=== PATIENT | male | born 1980 | race Caucasian/White ===

== ENCOUNTER 2019-04-13 10:12 | Inpatient (IN) | payer OTHER ==
[2019-04-13 12:55] VITALS: BMI 25.4
--- NOTE | 2019-04-13 14:57 | HP ---
CIWA Score Nausea/Vomitin Muscle Tremors: 2 Anxiety: 1-Mildly Anxious Agitation: 1-Slight > Activity Paroxysmal Sweats: 2 Orientation: 0-Oriented Tacttile Disturbances: 2-Mild Itch/Numbness/Burn Auditory Disturbances: 0-None Visual Disturbances: 2-Mild Sensitivity Headache: 3-Moderate CIWA-Ar Total Score: 15 - Admission Criteria OASAS Guidelines: Admission for Medically Managed Detox: Requires at least one of the followin. CIWA greater than 12 2. Seizures within the past 24 hours 3. Delirium tremens within the past 24 hours 4. Hallucinations within the past 24 hours 5. Acute intervention needed for co occurring medical disorder 6. Acute intervention needed for co occurring psychiatric disorder 7. Severe withdrawal that cannot be handled at a lower level of care (continued vomiting, continued diarrhea, abnormal vital signs) requiring intravenous medication and/or fluids 8. Patient presents the following: CIWA greater than 12 Admission Criteria Met: Admission criteria met Admission ROS S - HPI Chief Complaint: I need detox Allergies/Adverse Reactions: Allergies Allergy/AdvReac Type Severity Reaction Status Date / Time No Known Allergies Allergy Verified 04/13/19 12:44 History of Present Illness: 38 year old man with alcohol dependence presents for detox. Patient is on methadone maintenance at [facility], current dose is 90mg, last medicated yesterday, 04/12. Patient reports a fall this morning in which he sustained a bruise to the left olvera. He denies alcohol related blackouts or seizures. Exam Limitations: No Limitations - Ebola screening Have you traveled outside of the country in the last 21 days: No (N) Have you had contact with anyone from an Ebola affected area: No Have you been sick,other than usual withdrawal symptoms: No Do you have a fever: No - Review of Systems Constitutional: Changes in sleep, Unintentional Wgt. Loss EENT: reports: No Symptoms Reported Respiratory: reports: SOB with Exertion Cardiac: reports: No Symptoms Reported GI: reports: Poor Appetite, Abdominal cramping : reports: No Symptoms Reported Musculoskeletal: reports: Muscle Pain, Muscle Weakness Integumentary: reports: Sweating Neuro: reports: Headache, Numbness, Tremors Endocrine: reports: No Symptoms Reported Hematology: reports: No Symptoms Reported Psychiatric: reports: No Sypmtoms Reported Other Systems: Reviewed and Negative Patient History - Patient Medical History Hx Anemia: No Hx Asthma: No Hx Chronic Obstructive Pulmonary Disease (COPD): No Hx Cancer: No Hx Cardiac Disorders: No Hx Congestive Heart Failure: No Hx Hypertension: No Hx Hypercholesterolemia: No Hx Pacemaker: No HX Cerebrovascular Accident: No Hx Seizures: No Hx Dementia: No Hx Diabetes: No Hx Gastrointestinal Disorders: No Hx Liver Disease: No Hx Genitourinary Disorders: No Hx Sexually Transmitted Disorders: No Hx Renal Disease (ESRD): No Hx Thyroid Disease: No Hx Human Immunodeficiency Virus (HIV): No Hx Hepatitis C: No Hx Depression: No Hx Suicide Attempt: No Hx Bipolar Disorder: No Hx Schizophrenia: No - Patient Surgical History Past Surgical History: No Hx Neurologic Surgery: No Hx Cataract Extraction: No Hx Cardiac Surgery: No Hx Lung Surgery: No Hx Breast Surgery: No Hx Breast Biopsy: No Hx Abdominal Surgery: No Hx Appendectomy: No Hx Cholecystectomy: Yes Hx Genitourinary Surgery: No Hx Section: No Hx Orthopedic Surgery: No Hx Hysterectomy: No Anesthesia Reaction: No - PPD History Previous Implant?: Yes Documented Results: Negative w/o proof Implanted On Prior R Admission?: No PPD to be Administered?: No - Smoking Cessation Smoking history: Current every day smoker Have you smoked in the past 12 months: Yes Aproximately how many cigarettes per day: 20 Hx Chewing Tobacco Use: No Initiated information on smoking cessation: Yes 'Breaking Loose' booklet given: 04/13/19 - Substances abused Alcohol Frequency: Daily Amount used: 2 liters cognac/day Age of first use: 19 Date of last use: 04/13/19 Heroin Substance route: Inhalation Amount used: 4-5 bags/day Age of first use: 32 Date of last use: 04/12/19 Cocaine Substance route: Smoking Frequency: Daily Amount used: $100/day Age of first use: 19 Date of last use: 04/13/19 Family Disease History - Family Disease History Family Disease History: Diabetes: Father (colon), Mother, CA: Father Admission Physical Exam BHS - Vital Signs Vital Signs: Vital Signs - 24 hr 04/13/19 12:48 Temperature 98.1 F Pulse Rate 70 Respiratory 18 Rate Blood Pressure 126/92 - Physical General Appearance: Yes: No Apparent Distress, Nourished HEENTM: Yes: EOMI, Hearing grossly Normal, Normal ENT Inspection, Normocephalic , Normal Voice, RUFINO Respiratory: Yes: Chest Non-Tender, Lungs Clear, Normal Breath Sounds, No Respiratory Distress, No Accessory Muscle Use Neck: Yes: No masses,lesions,Nodules, Supple Breast: Yes: Breast Exam Deferred Cardiology: Yes: Regular Rhythm, Regular Rate, S1, S2 Abdominal: Yes: Normal Bowel Sounds, Non Tender, Soft Genitourinary: Yes: Within Normal Limits Back: Yes: Normal Inspection Extremities: Yes: Normal Range of Motion, Non-Tender, Tremors Neurological: Yes: pvc loader II-XII NML intact, Fully Oriented, Alert, Motor Strength 5/5, Normal Mood/Affect, Normal Response Integumentary: Yes: Normal Color, Clammy Lymphatic: Yes: Within Normal Limits - Diagnostic (1) Alcohol dependence with uncomplicated withdrawal Current Visit: Yes Status: Acute (2) Nicotine dependence Current Visit: Yes Status: Acute Qualifiers: Nicotine product type: cigarettes Substance use status: uncomplicated Qualified Code(s): F17.210 - Nicotine dependence, cigarettes, uncomplicated (3) Methadone maintenance therapy patient Current Visit: Yes Status: Chronic (4) Cocaine abuse Current Visit: Yes Status: Chronic Cleared for Admission [facility] - Detox or Rehab [facility] Level of Care: Medically Managed Detox Regimen/Protocol: Librium Claeared for Rehab Admission: No Breathalyzer - Breathalyzer Breathalyzer: 0 Urine Drug Screen - Test Device Lot number: [id number] Expiration date: 01/29/21 - Control Is test valid?: Yes - Results Drug screen NEGATIVE: No Urine drug screen results: THC-Marijuana, RACIEL-Cocaine, MOP-Opiates, MTD- Methadone Inpatient Rehab Admission - Rehab Decision to Admit Inpatient rehab admission?: No
[2019-04-13] MEDS ORDERED: MAGNESIUM HYDROX 2400MG/30ML ORAL SUSPENSION 30 ML CUP PO PRN (15:05)
[2019-04-13] MEDS ORDERED: BISMUTH SUBSALICYLATE 524 MG/30 ML UD PO PRN (15:05)
[2019-04-13] MEDS ORDERED: MAGNESIUM CITRATE 300 ML BOTTLE PO PRN (15:05)
[2019-04-13] MEDS ORDERED: IBUPROFEN 400 MG TABLET (FP) PO PRN (15:05)
[2019-04-13] MEDS ORDERED: MENTHOL/PHENOL 1 EACH UD MM PRN (15:05)
[2019-04-13] MEDS ORDERED: chlordiazePOXIDE HCL 25 MG CAPSULE PO PRN (15:05)
[2019-04-13] MEDS ORDERED: MAG HYDROX/AL HYDROX/SIMETH 30 ML UNIT-DOSE CUP PO PRN (15:05)
[2019-04-13] MEDS ORDERED: ACETAMINOPHEN 325 MG TABLET (FP) PO PRN ×2 (15:05)
[2019-04-13] MEDS ORDERED: METHADONE HCL 10 MG TABLET PO SCH (15:30)
[2019-04-13] MEDS: chlordiazePOXIDE HCL 25 MG CAPSULE PO SCH ×2 (18:28→22:42)
[2019-04-13] MEDS: NICOTINE 14 MG/24 HOURS TOPICAL PATCH TD SCH (18:31)
[2019-04-13] MEDS: NICOTINE POLACRILEX 2 MG GUM BUC PRN ×2 (18:35→22:45)
[2019-04-13] MEDS: BACITRACIN 15 GM TUBE TOPICAL OINTMENT TP SCH (22:42)
[2019-04-13] MEDS: THIAMINE HCL 100 MG TABLET (FP) PO SCH (22:42)
[2019-04-13] MEDS: MELATONIN 5 MG TABLETS PO PRN (22:42)
[2019-04-14] MEDS ORDERED: METHADONE HCL 10 MG TABLET ONE (04:30)
[2019-04-14] MEDS ORDERED: METHADONE HCL 40 MG DISPERSABLE TABLET ONE (04:30)
[2019-04-14] MEDS: METHADONE 80 MG, METHADONE 10 MG PO SCH (05:20)
[2019-04-14] MEDS: chlordiazePOXIDE HCL 25 MG CAPSULE PO SCH ×4 (05:21→22:40)
[2019-04-14] MEDS ORDERED: ALBUTEROL SO4 8 GM HFA INHALER IH ONE (05:41)
[2019-04-14] MEDS ORDERED: ALBUTEROL SO4 2.5/IPRATROPIUM 0.5 INH SOL 3 ML VIAL.NEB. NEB ONE ×2 (05:52→16:26)
[2019-04-14] MEDS ORDERED: ALBUTEROL SO4 2.5/IPRATROPIUM 0.5 INH SOL 3 ML VIAL.NEB. NEB PRN (06:07)
--- NOTE | 2019-04-14 08:53 | EKG ---
Test Reason : Blood Pressure : / mmHG Vent. Rate : 051 BPM Atrial Rate : 051 BPM P-R Int : 140 ms QRS Dur : 088 ms QT Int : 444 ms P-R-T Axes : 047 035 041 degrees QTc Int : [address] ELEVATION, CONSIDER EARLY REPOLARIZATION BORDERLINE ECG NO PREVIOUS ECGS AVAILABLE Confirmed by GISELL MEREDITH, CHER ([id number]) on 04/14/2019 8:53:18 AM Referred By: CHEYENNE MARSHALL Confirmed By:CHER JAMESON MD
[2019-04-14 10:23] LABS: ALBUMIN 3.3 g/dl (3.4-5.0); BILIRUBIN,TOTAL 0.2 mg/dL (0.2-1); BLOOD UREA NITROGEN 17.3 mg/dL (7-18); CALCIUM 8.5 mg/dL (8.5-10.1); CREATININE 0.7 mg/dL (0.55-1.3); POTASSIUM 3.9 mmol/L (3.5-5.1); TOT PROT 6.3 g/dl (6.4-8.2)
[2019-04-14 10:33] LABS: HEMATOCRIT 41.8 % (35.4-49); HEMOGLOBIN 13.8 GM/dL (11.7-16.9); MCH 29.9 pg (25.7-33.7); MCHC 33.1 g/dl (32.0-35.9); MEAN CELL VOLUME 90.3 fl (80-96); MEAN PLT VOLUME 10.8 fl (7.5-11.1); RBC 4.63 M/mm3 (4.00-5.60); RDW 13.6 % (11.9-15.9); WHITE BLOOD COUNT 9.6 K/mm3 (4.0-10.0)
[2019-04-14 10:52] LABS: PLATELET COUNT 188 K/MM3 (134-434)
[2019-04-14] MEDS: NICOTINE 14 MG/24 HOURS TOPICAL PATCH TD SCH (11:26)
[2019-04-14] MEDS: PRENATAL VITAMINS W/ FOLIC ACID TABLET (FP) PO SCH (11:26)
[2019-04-14] MEDS: BACITRACIN 15 GM TUBE TOPICAL OINTMENT TP SCH ×2 (11:26→23:10)
[2019-04-14] MEDS: METHOCARBAMOL 500 MG TABLET PO PRN ×2 (15:36→22:40)
--- NOTE | 2019-04-14 17:09 | PN ---
[facility] CIWA - CIWA Score Nausea/Vomitin-Mild Nausea/No Vomiting Muscle Tremors: 3 Anxiety: 3 Agitation: 3 Paroxysmal Sweats: 3 Orientation: 0-Oriented Tacttile Disturbances: 0-None Auditory Disturbances: 0-None Visual Disturbances: 0-None Headache: 1-Very Mild CIWA-Ar Total Score: 14 [facility] Progress Note (SOAP) Subjective: Headache, other symptoms controlled with medication (refused to elaborate) Objective: 04/14/19 17:07 Last Vital Signs Temp Pulse Resp BP Pulse Ox 97.5 F L 83 18 112/63 04/14/19 17:06 04/14/19 17:06 04/14/19 17:06 04/14/19 17:06 Laboratory Tests 04/14/19 04/14/19 04/14/19 07:50 07:50 07:50 WBC 9.6 RBC 4.63 Hgb 13.8 Hct 41.8 MCV 90.3 MCH 29.9 MCHC 33.1 RDW 13.6 Plt Count 188 MPV 10.8 Sodium 143 Potassium 3.9 Chloride 105 Carbon Dioxide 32 Anion Gap 6 L BUN 17.3 Creatinine 0.7 Est GFR (CKD-EPI)AfAm 139.73 Est GFR (CKD-EPI)NonAf 120.56 Random Glucose 99 Calcium 8.5 Total Bilirubin 0.2 AST 14 L ALT 30 Alkaline Phosphatase 116 Total Protein 6.3 L Albumin 3.3 L RPR Titer Nonreactive Labs reviewed Assessment: 04/14/19 17:08 Withdrawal symptoms Plan: Continue detox Encouraged PO water intake
[2019-04-14] MEDS: NICOTINE POLACRILEX 2 MG GUM BUC PRN ×3 (17:56→22:43)
[2019-04-14] MEDS: THIAMINE HCL 100 MG TABLET (FP) PO SCH (22:40)
[2019-04-14] MEDS: MELATONIN 5 MG TABLETS PO PRN (22:40)
[2019-04-15] MEDS ORDERED: METHADONE HCL 40 MG DISPERSABLE TABLET ONE (04:11)
[2019-04-15] MEDS ORDERED: METHADONE HCL 10 MG TABLET ONE (04:11)
[2019-04-15] MEDS: METHADONE 80 MG, METHADONE 10 MG PO SCH (05:21)
[2019-04-15] MEDS: chlordiazePOXIDE HCL 25 MG CAPSULE PO SCH ×4 (05:21→22:36)
[2019-04-15] MEDS: ALBUTEROL SO4 8 GM HFA INHALER IH PRN ×2 (07:53→13:37)
[2019-04-15] MEDS: NICOTINE 14 MG/24 HOURS TOPICAL PATCH TD SCH (10:32)
[2019-04-15] MEDS: BACITRACIN 15 GM TUBE TOPICAL OINTMENT TP SCH ×2 (10:32→22:49)
[2019-04-15] MEDS: NICOTINE POLACRILEX 2 MG GUM BUC PRN ×5 (10:32→22:38)
[2019-04-15] MEDS: PRENATAL VITAMINS W/ FOLIC ACID TABLET (FP) PO SCH (10:32)
--- NOTE | 2019-04-15 12:28 | PN ---
[facility] CIWA - CIWA Score Nausea/Vomitin-No Nausea/No Vomiting Muscle Tremors: 3 Anxiety: 2 Agitation: 2 Paroxysmal Sweats: 2 Orientation: 0-Oriented Tacttile Disturbances: 0-None Auditory Disturbances: 0-None Visual Disturbances: 0-None Headache: 0-None Present CIWA-Ar Total Score: 9 S Progress Note (SOAP) Subjective: irritable agitation tired interrupted sleep Objective: 04/15/19 12:26 Vital Signs Temperature 97.9 F 04/15/19 09:20 Pulse Rate 84 04/15/19 09:20 Respiratory Rate 18 04/15/19 09:20 Blood Pressure 98/64 04/15/19 09:20 O2 Sat by Pulse Oximetry (%) Laboratory Tests 04/14/19 04/14/19 04/14/19 07:50 07:50 07:50 WBC 9.6 RBC 4.63 Hgb 13.8 Hct 41.8 MCV 90.3 MCH 29.9 MCHC 33.1 RDW 13.6 Plt Count 188 MPV 10.8 Sodium 143 Potassium 3.9 Chloride 105 Carbon Dioxide 32 Anion Gap 6 L BUN 17.3 Creatinine 0.7 Est GFR (CKD-EPI)AfAm 139.73 Est GFR (CKD-EPI)NonAf 120.56 Random Glucose 99 Calcium 8.5 Total Bilirubin 0.2 AST 14 L ALT 30 Alkaline Phosphatase 116 Total Protein 6.3 L Albumin 3.3 L RPR Titer Nonreactive labs noted aaox3 ambulating no acute distress Assessment: 04/15/19 12:27 withdrawal sx Plan: continue detox increase fluids
[2019-04-15] MEDS: MELATONIN 5 MG TABLETS PO PRN (22:35)
[2019-04-15] MEDS: THIAMINE HCL 100 MG TABLET (FP) PO SCH (22:36)
[2019-04-16] MEDS ORDERED: chlordiazePOXIDE HCL 10 MG CAPSULE PO PRN
[2019-04-16] MEDS ORDERED: METHADONE HCL 10 MG TABLET ONE (04:19)
[2019-04-16] MEDS ORDERED: METHADONE HCL 40 MG DISPERSABLE TABLET ONE (04:19)
[2019-04-16] MEDS: chlordiazePOXIDE HCL 10 MG CAPSULE PO SCH ×4 (06:01→21:59)
[2019-04-16] MEDS: METHADONE 80 MG, METHADONE 10 MG PO SCH (06:01)
[2019-04-16] MEDS: METHOCARBAMOL 500 MG TABLET PO PRN ×2 (06:31→17:33)
[2019-04-16] MEDS: NICOTINE 14 MG/24 HOURS TOPICAL PATCH TD SCH (10:22)
[2019-04-16] MEDS: BACITRACIN 15 GM TUBE TOPICAL OINTMENT TP SCH ×2 (10:22→23:50)
[2019-04-16] MEDS: PRENATAL VITAMINS W/ FOLIC ACID TABLET (FP) PO SCH (10:23)
[2019-04-16] MEDS: NICOTINE POLACRILEX 2 MG GUM BUC PRN ×2 (10:23→13:02)
--- NOTE | 2019-04-16 13:31 | PN ---
[facility] CIWA - CIWA Score Nausea/Vomitin-No Nausea/No Vomiting Muscle Tremors: 3 Anxiety: 3 Agitation: 2 Paroxysmal Sweats: No Perspiration Orientation: 0-Oriented Tacttile Disturbances: 0-None Auditory Disturbances: 0-None Visual Disturbances: 0-None Headache: 0-None Present CIWA-Ar Total Score: 8 [facility] Progress Note (SOAP) Subjective: low back pain sweats agitation Objective: 04/16/19 13:30 Vital Signs Temperature 97.7 F 04/16/19 09:47 Pulse Rate 68 04/16/19 09:47 Respiratory Rate 18 04/16/19 09:47 Blood Pressure 105/65 04/16/19 09:47 O2 Sat by Pulse Oximetry (%) aaox3 ambulating no acute distress Assessment: 04/16/19 13:30 withdrawal sx Plan: continue detox increase fluids lidocaine patch daily nicotine patch increased to 21mcg roboxin prn motrin prn
[2019-04-16] MEDS ORDERED: LIDOCAINE 5% TOPICAL PATCH TP ONE (14:00)
[2019-04-16] MEDS ORDERED: METHOCARBAMOL 500 MG TABLET PO ONE (21:33)
[2019-04-16] MEDS: MELATONIN 5 MG TABLETS PO PRN (21:54)
[2019-04-16] MEDS: THIAMINE HCL 100 MG TABLET (FP) PO SCH (23:50)
[2019-04-16] MEDS: LIDOCAINE PATCH REMOVAL MC SCH (23:50)
[2019-04-17] MEDS: METHOCARBAMOL 500 MG TABLET PO PRN ×3 (01:33→16:23)
[2019-04-17] MEDS ORDERED: METHADONE HCL 10 MG TABLET ONE (04:08)
[2019-04-17] MEDS ORDERED: METHADONE HCL 40 MG DISPERSABLE TABLET ONE (04:09)
[2019-04-17] MEDS: chlordiazePOXIDE HCL 10 MG CAPSULE PO SCH ×2 (06:00→16:00)
[2019-04-17] MEDS: METHADONE 80 MG, METHADONE 10 MG PO SCH (06:00)
--- NOTE | 2019-04-17 08:44 | PN ---
[facility] CIWA - CIWA Score Nausea/Vomitin-Mild Nausea/No Vomiting Muscle Tremors: 1-None Visible, but [place] Anxiety: 2 Agitation: 1-Slight > Activity Paroxysmal Sweats: 2 Orientation: 0-Oriented Tacttile Disturbances: 1-Very Mild Itch/Numbness Auditory Disturbances: 0-None Visual Disturbances: 0-None Headache: 1-Very Mild CIWA-Ar Total Score: 9 S Progress Note (SOAP) Subjective: c/lo of back pain, interrupted sleep, chills Objective: 04/17/19 12:23 Vital Signs Temperature 97.3 F L 04/17/19 07:29 Pulse Rate 65 04/17/19 07:29 Respiratory Rate 18 04/17/19 07:29 Blood Pressure 102/60 04/17/19 07:29 O2 Sat by Pulse Oximetry (%) Laboratory Last Values WBC 9.6 K/mm3 (4.0-10.0) 04/14/19 07:50 RBC 4.63 M/mm3 (4.00-5.60) 04/14/19 07:50 Hgb 13.8 GM/dL (11.7-16.9) 04/14/19 07:50 Hct 41.8 % (35.4-49) 04/14/19 07:50 MCV 90.3 fl (80-96) 04/14/19 07:50 MCH 29.9 pg (25.7-33.7) 04/14/19 07:50 MCHC 33.1 g/dl (32.0-35.9) 04/14/19 07:50 RDW 13.6 % (11.9-15.9) 04/14/19 07:50 Plt Count 188 K/MM3 (134-434) 04/14/19 07:50 MPV 10.8 fl (7.5-11.1) 04/14/19 07:50 Sodium 143 mmol/L (136-145) 04/14/19 07:50 Potassium 3.9 mmol/L (3.5-5.1) 04/14/19 07:50 Chloride 105 mmol/L (98-107) 04/14/19 07:50 Carbon Dioxide 32 mmol/L (21-32) 04/14/19 07:50 Anion Gap 6 MMOL/L (8-16) L 04/14/19 07:50 BUN 17.3 mg/dL (7-18) 04/14/19 07:50 Creatinine 0.7 mg/dL (0.55-1.3) 04/14/19 07:50 Est GFR (CKD-EPI)AfAm 139.73 04/14/19 07:50 Est GFR (CKD-EPI)NonAf 120.56 04/14/19 07:50 Random Glucose 99 mg/dL (74-106) 04/14/19 07:50 Calcium 8.5 mg/dL (8.5-10.1) 04/14/19 07:50 Total Bilirubin 0.2 mg/dL (0.2-1) 04/14/19 07:50 AST 14 U/L (15-37) L 04/14/19 07:50 ALT 30 U/L (13-61) 04/14/19 07:50 Alkaline Phosphatase 116 U/L (45-117) 04/14/19 07:50 Total Protein 6.3 g/dl (6.4-8.2) L 04/14/19 07:50 Albumin 3.3 g/dl (3.4-5.0) L 04/14/19 07:50 RPR Titer Nonreactive (NONREACTIVE) 04/14/19 07:50 labs reviewed Assessment: 04/17/19 12:25 Aox3 no acute distress, full ROM, ambulating in the unit Plan: d/c in AM
[2019-04-17] MEDS ORDERED: LIDOCAINE 5% TOPICAL PATCH TP SCH (10:00)
[2019-04-17] MEDS ORDERED: NICOTINE 21 MG/24 HOURS TOPICAL PATCH TD SCH (10:00)
[2019-04-17] MEDS: PRENATAL VITAMINS W/ FOLIC ACID TABLET (FP) PO SCH (10:23)
[2019-04-17] MEDS: NICOTINE POLACRILEX 2 MG GUM BUC PRN ×3 (10:27→18:36)
[2019-04-17] MEDS: BACITRACIN 15 GM TUBE TOPICAL OINTMENT TP SCH ×2 (14:28→21:47)
[2019-04-17] MEDS: LIDOCAINE PATCH REMOVAL MC SCH (21:37)
[2019-04-17] MEDS: MELATONIN 5 MG TABLETS PO PRN (21:39)
[2019-04-17] MEDS: THIAMINE HCL 100 MG TABLET (FP) PO SCH (21:39)
[2019-04-18] MEDS: METHOCARBAMOL 500 MG TABLET PO PRN (02:43)
[2019-04-18] MEDS ORDERED: METHADONE HCL 40 MG DISPERSABLE TABLET ONE (03:08)
[2019-04-18] MEDS ORDERED: METHADONE HCL 10 MG TABLET ONE (03:08)
[2019-04-18] MEDS ORDERED: chlordiazePOXIDE HCL 10 MG CAPSULE PO ONE (05:00)
[2019-04-18] MEDS: METHADONE 80 MG, METHADONE 10 MG PO SCH (05:49)
--- NOTE | 2019-04-18 09:10 | DS ---
[facility] Detox Discharge Summary Admission Date: 04/13/19 Discharge Date: 04/18/19 - History Present History: Alcohol Dependence, Cocaine Dependence, MMTP - Physical Exam Results Vital Signs: Vital Signs Temperature 97.7 F 04/18/19 08:31 Pulse Rate 76 04/18/19 08:31 Respiratory Rate 18 04/18/19 08:31 Blood Pressure 119/72 04/18/19 08:31 O2 Sat by Pulse Oximetry (%) Pertinent Admission Physical Exam Findings: pt arrived in withdrawals Laboratory Tests 04/14/19 04/14/19 04/14/19 07:50 07:50 07:50 WBC 9.6 RBC 4.63 Hgb 13.8 Hct 41.8 MCV 90.3 MCH 29.9 MCHC 33.1 RDW 13.6 Plt Count 188 MPV 10.8 Sodium 143 Potassium 3.9 Chloride 105 Carbon Dioxide 32 Anion Gap 6 L BUN 17.3 Creatinine 0.7 Est GFR (CKD-EPI)AfAm 139.73 Est GFR (CKD-EPI)NonAf 120.56 Random Glucose 99 Calcium 8.5 Total Bilirubin 0.2 AST 14 L ALT 30 Alkaline Phosphatase 116 Total Protein 6.3 L Albumin 3.3 L RPR Titer Nonreactive TB Test (QFT) Nil TB Test (QFT) Mitogen TB Test (QFT) Antigen TB Test (QFT) TB Positive Criteria 04/14/19 08:40 WBC RBC Hgb Hct MCV MCH MCHC RDW Plt Count MPV Sodium Potassium Chloride Carbon Dioxide Anion Gap BUN Creatinine Est GFR (CKD-EPI)AfAm Est GFR (CKD-EPI)NonAf Random Glucose Calcium Total Bilirubin AST ALT Alkaline Phosphatase Total Protein Albumin RPR Titer TB Test (QFT) Nil 0.11 TB Test (QFT) Mitogen >10.00 TB Test (QFT) Antigen 0.10 TB Test (QFT) Negative TB Positive Criteria today pt is aaox3 ambulating no acute distress - Treatment Hospital Course: Detox Protocol Followed, Detoxed Safely, Responded well, Discharged Condition Good, Rehab Referral Accepted Patient has Accepted a Rehab Referral to: pt declined rehab; referral to [facility] OTP - Medication Discharge Medications: Ambulatory Orders NK [No Known Home Medication] 04/13/19 - Diagnosis (1) Alcohol dependence with uncomplicated withdrawal Current Visit: Yes Status: Chronic (2) Nicotine dependence Current Visit: Yes Status: Chronic Qualifiers: Nicotine product type: cigarettes Substance use status: uncomplicated Qualified Code(s): F17.210 - Nicotine dependence, cigarettes, uncomplicated (3) Cocaine abuse Current Visit: Yes Status: Chronic (4) Methadone maintenance therapy patient Current Visit: Yes Status: Chronic - AMA Did Patient Leave Against Medical Advice: No (referral provided)
[2019-04-18 09:43] VITALS: BP 123/67; PULSE 93; TEMP 98.1
== END 2019-04-18 09:07 | disposition home or self-care (01) | DRG 773 ==
LOC: YASAS 10:12 → Y6N 17:06
PROVIDERS: ADMIT Surgery; ATTEND Surgery
PROC: HZ2ZZZZ Detoxification Services for Substance Abuse Treatment (ICD-10-PCS; principal; 2019-04-13)
DX: F10.230 Alcohol dependence with withdrawal, uncomplicated (principal); F11.20 Opioid dependence, uncomplicated; F14.20 Cocaine dependence, uncomplicated; F17.210 Nicotine dependence, cigarettes, uncomplicated; M54.5 Low back pain
CPT/HCPCS: 36415; 80053; 85027; 86480; 86593; 93005; 93010; 94640